=== PATIENT | female | born 1995 | race Caucasian/White ===

== ENCOUNTER 2016-10-22 07:04 | Inpatient (IN) ==
--- NOTE | 2016-10-22 07:46 | OB/GYN History & Physical ---
Date of Encounter: 10/22/16 Time of Encounter: 07:40 Assessment and Plan (1) 39 weeks gestation of Current visit: Yes Status: Acute (2) First in adolescent 16 years of age or older in third trimester Current visit: Yes Status: Acute (3) Labor abnormality, antepartum Current visit: Yes Status: Acute (4) Macrosomia affecting management of mother in third trimester Current visit: Yes Status: Acute (5) History of aortic valve insufficiency Current visit: Yes Status: Acute History of Present Illness HPI: Ms. Roca is a 21 year old female 1 para 0 at 39-0/7 weeks who presents to labor and delivery with complaint of contractions every 3-5 minutes starting early this morning. Patient is a scheduled section at [facility] Tomorrow due to history of aortic insufficiency. Patient states they told her if the contractions were so close to come to the closest hospital to be evaluated. Patient states at 37 weeks baby weighed almost 9 pounds reason for the scheduled section tomorrow. Patient states she has not been examined since 34 weeks not sure she has been making cervical change. Denies any leaking fluid vaginal bleeding or discharge. Patient states last time she ate anything was 10 PM last night did have some liquids at 3 AM. Past Med Surg Social Fam HX - Past Medical History Medical history: other (Aortic insufficiency) Psychiatric history: no psych history - Past Surgical History Surgical History: other (Open heart surgery in 1999) - Social History Smoking Status: Never smoker Smokeless Tobacco Status: No Alcohol use: none Drug use: none Current living situation: Home - Independent Activity Level: Independent ambulation Recent Out of Country Travel Within the Last 8 Weeks: No Exposure or Possible Exposure to Illness During Travel: No - Family History Father Hx Family Cardiac Disorders: Yes (HTN) Obstetrical History - Pregnancies : 1 Para: 0 Medications and Allergies Allergies Penicillins Allergy (Verified 10/22/16 07:25) other Pt states that her mom says she is allergic to it Review of System OB All systems PM: reviewed and no additional remarkable complaints except as stated - Menstruation Menstruation: other (Complaining of contractions every 4 minutes) Exam - Constitutional Constitutional: well developed, moderate distress, obese - HEENT HEENT: EOMI - Neck Neck exam: full ROM - Lungs Respiratory exam: CTAB - Cardiovascular Cardiovascular exam: +S1 - Breasts Breast: bilateral: normal - Abdomen Abdomen: Present: bowel sounds normal, gravid - Cervix Dilation: 3 Effacement: 90 Station: -4 (ball) Results All other labs normal.
--- NOTE | 2016-10-22 08:18 | Anesthesia Evaluation PreOp ---
Date of Encounter: 10/22/16 Time of Encounter: 08:07 - Past History Planned Operation: c-cestion d/t LGA, and Aortic Ins. Cardiac History: Cardiac Surgery (1999, patient unaware of what type of surgery it was and told it reoccured at age 14, she did METs >8 in highschool without any restrictions. She has not had any complications with excerise, denies any SOB, CP, dizzness, PND,), Other (attempting to obtain recent cardiac workup from [facility]) Pulmonary History: Denies Any Significant HX CHEMICAL DEPENDENCY NURSE History: Denies Any Significant HX Other Medical History: Denies Any Significant HX Anesthesia History: No Prior Anesthetic Complications, Past Anesthesia : Yes (39 wks 3/90 membranes Intact...then 4-5cm) Alcohol Use: none Drug use: none Medications and Allergies Allergies Penicillins Allergy (Verified 10/22/16 07:25) other Pt states that her mom says she is allergic to it Anesthesia Exam - HEENT Pupil (Motor): Pupils equal Mallampati: III Teeth: Normal Oral Opening: Greater than 3 - CHEMICAL DEPENDENCY NURSE LOC: Oriented CHEMICAL DEPENDENCY NURSE Motor: Normal RUE, Normal LUE, Normal RLE, Normal LLE, Normal Face CHEMICAL DEPENDENCY NURSE Sensory: Normal: RUE, LUE, RLE, LLE, Face - Cardiac Rhythm: Regular - Pulmonary Breath Sounds: bilateral Clear Respiratory Effort: Symmetrical Anesthesia Assess/Plan ASA Score: 2 Modified Maxwell Scale for Level of Consciousness: Cooperative, oriented, and tranquil Anesthetic Plan: General, Regional Monitoring Plan: Standard Monitors Recovery Plan: PACU
[2016-10-22] MEDS ORDERED: Metoclopramide 10 MG/2 ML VIAL IVP ONE (08:25)
[2016-10-22] MEDS ORDERED: Clindamycin 900 MG/50 ML 900 MG/50 ML IV.SOLN IVPB ONE (08:25)
[2016-10-22] MEDS ORDERED: Famotidine 20 MG/2 ML VIAL IVP ONE (08:25)
[2016-10-22] MEDS ORDERED: Ringers Solution, Lactated 1,000 ML IVC ONE (08:25)
[2016-10-22] MEDS ORDERED: *HR* Phenylephrine 10 MG/ML VIAL ONE (08:29)
[2016-10-22] MEDS ORDERED: Ringers Solution, Lactated 1,000 ML IVC SCH ×3 (08:30→22:34)
[2016-10-22] MEDS ORDERED: Oxytocin 20 units/ LR 1000 mL 20 UNIT/1,000 ML BAG IVC SCH (08:30)
--- NOTE | 2016-10-22 08:31 | OB Labor Progress Note ---
Date of Encounter: 10/22/16 Time of Encounter: 08:30 Labor Progress Note - Subjective Subjective: patient states contractions getting stronger and closer - Cervix Cervix: 5/100/ball with buldging membranes - Heart Tones Heart Tones: FHT's 140's reactive - [place]: contractions every 2 min - Plan Plan: will prep for primary LTCS
[2016-10-22] MEDS ORDERED: Lidocaine/EPI 1:200k 2% PF 10 ML VIAL ONE (08:34)
[2016-10-22 08:40] LABS: Basophils % 0.1 %; Eosinophils % 0.1 %; Hemoglobin 12.6 g/dL (11.5-15.4); Immature Granulocytes % 0.2 % (0-4); Lymphocytes # 1.1 K/mcL (0.6-4.6); Lymphocytes % 12.7 %; Mean Corpuscular HGB Conc 34.1 g/dL (31.6-35.5); Mean Corpuscular Hemoglobin 29.3 pg (28.0-33.3); Mean Platelet Volume 12.9 fL (9.4-12.4); Monocytes # 0.8 K/mcL (0.0-1.3); Monocytes % 9.6 %; Neutrophils # 6.4 K/mcL (1.6-8.9); Platelet Count 166 K/mcL (140-400); Red Cell Distribution Width 13.6 % (11.5-14.5); Segmented Neutrophils % 77.3 %
[2016-10-22] MEDS ORDERED: 0.9 % Sodium Chloride 500 ML ONE (08:44)
[2016-10-22] MEDS ORDERED: Ringers Solution, Lactated 1,000 ML ONE (08:51)
[2016-10-22] MEDS ORDERED: *HR* FentaNYL (PF) 100 MCG/2 ML VIAL ONE (08:53)
[2016-10-22] MEDS ORDERED: EPHEDrine 50 MG/ML VIAL ONE (08:54)
[2016-10-22] MEDS ORDERED: *HR* Oxytocin 10 UNIT/ML VIAL IM ONE (08:54)
[2016-10-22] MEDS ORDERED: *HR* Morphine Sulfate/PF 5 MG/10 ML AMPUL ONE ×2 (08:56→09:08)
[2016-10-22] MEDS ORDERED: Lidocaine -MPF 2% 5 ML VIAL INFILT ONE (08:56)
[2016-10-22] MEDS ORDERED: Bupivacaine-MPF 0.25% 10 ML VIAL ONE (08:56)
[2016-10-22] MEDS ORDERED: *HR* Promethazine 25 MG/ML VIAL IVP PRN (09:55)
--- NOTE | 2016-10-22 10:53 | OB/GYN Procedure Note ---
Section - Date of procedure: 10/22/16 Preop diagnosis: other ( at 39-0/7 weeks, history of macrosomia, active labor, history of aortic valve insufficiency) Post-op diagnosis: same Procedure: primary low transverse Surgeon: Yomi Davis Estimated blood loss (cc): 500 Final Tester: Lenny Aleman ([email or web address]) Data Services Developer: Lenny Ackerman Anesthesia Type: Spinal section complications: none Disposition: L&D Recovery Room Specimens: Cord blood - (s) Infant A Delivery Date: 10/22/16 Infant Delivery Time: 09:59 Presentation: vertex Position: GUILLERMO Route of delivery: other Gender: Male Viability: Viable Pounds: 9 Ounces: 9 Gram Weight: 4.335 kg at 1 minute: 9 at 5 minutes: 9 Shoulder Dystocia: not encountered Specimens collected: cord blood Placenta: complete extraction Cord: 3 umbilical vessels - Narrative Narrative: Patient is a 21-year-old 1 para 0 at 39 and 0 since weeks who presented to labor and delivery in active labor. Patient was supposed to deliver at [facility] tomorrow by section due to history of atrial insufficiency with a macrosomic . Patient's care was transferred to the facility because of cardiac history. Patient was told by them if she felt she could not make it to [place] to come to the local hospital which she did. She was 3 cm on admission within an hour she was 5. She was unstable to transfer section was called. Procedure: Patient was taken operating room where spinal anesthesia was found be adequate. She was placed in the dorsal supine position with tilt prepped and draped in usual fashion. Timeout was then obtained a Pfannenstiel incision was made with a scalpel and carried down through the underlying tissue to the fascia was identified. Fascia was nicked in midline extended laterally with Richards scissors. The superior and inferior edges of the fascia were grasped tented up and dissected off the rectus muscles. Rectus muscles were in midline parietal peritoneum was identified tented up and entered sharply. This was extended superiorly fairly Metzenbaum scissors. Bladder blade was inserted and vesicouterine peritoneum was identified tented up and entered sharply. This was extended laterally bladder flap was created digitally. The lower uterine segment was then incised with a scalpel extended laterally with digital manipulation. The membranes were still intact she was noted to have meconium they were then ruptured and 's head was brought up through the incision and bulb suction. The infant was then fully delivered cord was clamped and cut infant was handed off to waiting pediatric team. Cord blood was collected placenta was then manually removed uterus was exteriorized and cleaned of all clots and debris. The lower uterine segment was then closed using an 0 Vicryl in a running locking stitch by a 2 layer closure. Good hemostasis was noted. Uterus was returned to the abdomen gutters were cleansed of all clots and debris and copiously irrigated. The fascia was then closed using a #1 stratafix in a running stitch and the skin was closed using a 4 Vicryl in subcuticular manner. A OSMEL dressing was applied and patient was taken recovery room in stable condition. All needles lap sponge counts were correct 3 she did receive preoperative antibiotics. Patient will be observed 2 hours before being sent to a telemetry floor for 12 hours for cardiac monitoring is stable will be transferred back to floor.
[2016-10-22] MEDS: *HR* HYDROmorphone (PF) 1 MG/ML SYRINGE IVP PRN ×2 (11:55→12:56)
--- NOTE | 2016-10-22 12:18 | Anesthesia Evaluation Post Op ---
Date of Encounter: 10/22/16 Time of Encounter: 12:16 - Vital Signs Vital Signs: vss - Lungs Lungs: Clear Ascult./Percussion - Airway Airway: Non-obstructed - Cardiovascular Baseline Rhythm - Mental Status Mental Status: Alert & Oriented, Answers Appropriately - Pain Pain Scale used: Willi (Faces) - Nausea Vomiting Nausea Vomiting: Not Present - Discharge PostOp Status: Transfer Patient to floor
[2016-10-22] MEDS ORDERED: *HR* OxyCODONE/APAP 5/325 TABLET PO PRN (14:06)
[2016-10-22] MEDS ORDERED: Sennosides 8.6 MG TABLET PO PRN ×2 (14:06→22:34)
[2016-10-22] MEDS ORDERED: Ibuprofen 600 MG TABLET PO PRN (14:06)
[2016-10-22] MEDS ORDERED: Simethicone 80 MG TAB.CHEW PO PRN ×2 (14:06→22:34)
[2016-10-22] MEDS ORDERED: *HR* HYDROmorphone (PF) 1 MG/ML SYRINGE IVP PRN (14:06)
[2016-10-22] MEDS ORDERED: *HR* Morphine 2 MG/ML SYRINGE IVP PRN (14:06)
[2016-10-22] MEDS ORDERED: Metoclopramide 10 MG/2 ML VIAL IVP PRN (14:06)
[2016-10-22] MEDS ORDERED: *HR* OxyCODONE/APAP 10/325 TABLET PO PRN ×2 (14:06→22:34)
[2016-10-22] MEDS ORDERED: Ondansetron 4 MG/2 ML VIAL IVP PRN ×2 (14:06→22:34)
[2016-10-22] MEDS ORDERED: Lanolin 7 G OINT...G. TP PRN ×2 (16:49→22:34)
[2016-10-22] MEDS: Oxytocin 20 units/ LR 1000 mL 20 UNIT/1,000 ML BAG IV SCH ×2 (17:01→23:30)
[2016-10-22] MEDS ORDERED: Oxytocin 20 units/ LR 1000 mL 20 UNIT/1,000 ML BAG IV SCH (22:34)
[2016-10-23] MEDS: Ibuprofen 600 MG TABLET PO PRN ×3 (02:08→15:50)
[2016-10-23 03:22] LABS: Basophils % 0.1 %; Eosinophils % 0.1 %; Hematocrit 28.8 % (35.3-44.9); Hemoglobin 9.5 g/dL (11.5-15.4); Immature Granulocytes % 0.2 % (0-4); Lymphocytes % 11.8 %; Mean Corpuscular Hemoglobin 28.8 pg (28.0-33.3); Mean Corpuscular Volume 87.3 fL (83.0-100.0); Mean Platelet Volume 12.3 fL (9.4-12.4); Monocytes # 0.9 K/mcL (0.0-1.3); Monocytes % 10.8 %; Neutrophils # 6.4 K/mcL (1.6-8.9); Platelet Count 125 K/mcL (140-400); Red Cell Distribution Width 13.6 % (11.5-14.5)
--- NOTE | 2016-10-23 07:49 | OB/GYN Progress Note ---
Date of Encounter: 10/23/16 Time of Encounter: 07:46 - Assessment and Plan (1) Status post primary low transverse section Current Visit: Yes Status: Acute Continue routine care discharge home tomorrow (2) Anemia Current Visit: Yes Status: Acute Continue ferrous sulfate daily Qualifiers: Anemia type: unspecified type Qualified Code(s): D64.9 - Anemia, unspecified Subjective - Subjective Principal diagnosis: Postop/ day 1 Interval history: Patient is day 1. Patient had a primary c/s for macrosomia. Patient denies any pain at this time. Reports light lochia. Patient reports: appetite normal, voiding normally, pain well controlled, ambulating normally [place]: doing well, nursing well Objective - Vital Signs Latest vital signs: Vital Signs Temp Pulse Resp BP Pulse Ox 10/23/16 04:10 98.3 F 78 14 113/75 96 10/23/16 01:15 98.1 F 78 14 118/80 98 10/23/16 00:04 98.4 F 74 15 131/83 99 10/22/16 21:02 97.8 F 64 14 129/84 100 10/22/16 16:15 97.4 F L 73 12 118/76 97 10/22/16 16:00 97.4 F L 73 12 118/76 97 10/22/16 15:30 12 10/22/16 14:45 97.2 F L 66 12 108/69 98 10/22/16 13:00 97.9 F 72 12 122/65 97 Intake and Output 10/22/16 10/22/16 10/23/16 15:59 23:59 07:59 Intake Total 1000 / 1000 0 / 0 Output Total 500 / 500 0 / 0 1500 / 1500 Balance -500 / -500 1000 / 1000 -1500 / -1500 Intake: IV Fluids 1000 / 1000 Pitocin 20 unit In 1,000 1000 / 1000 ml @ 125 mls/hr IV .Q8H [facility] Rx#:[id number] Oral 0 / 0 0 / 0 Output: Urine 0 / 0 Estimated Blood Loss 500 / 500 Catheter 1500 / 1500 Other: Weight 94.376 kg Patient Weight 10/23/16 23:59 Weight 94.376 kg - Exam Lungs: bilateral: normal Chest: Normal S1, Normal S2 Extremities: Present: normal Abdomen: Present: normal appearance, soft Incision: Present: normal, dry, intact, dressed (Lynette dressing) Uterus: Present: normal, firm Fundal Height: 2 (U/2) - Labs Labs: Laboratory Results - last 24 hr 10/22/16 10/23/16 08:30 03:14 WBC 8.3 8.4 RBC 4.30 3.30 L Hgb 12.6 9.5 L D Hct 37.0 28.8 L MCV 86.0 87.3 MCH 29.3 28.8 MCHC 34.1 33.0 RDW 13.6 13.6 Plt Count 166 125 L MPV 12.9 H 12.3 Immature Gran % 0.2 0.2 Seg Neutrophils % 77.3 77.0 Lymphocytes % 12.7 11.8 Monocytes % 9.6 10.8 Eosinophils % 0.1 0.1 Basophils % 0.1 0.1 Neutrophils # 6.4 6.4 Lymphocytes # 1.1 1.0 Monocytes # 0.8 0.9 Eosinophils # 0.0 0.0 Basophils # 0.0 0.0
[2016-10-23] MEDS: Prenatal Vit/FA 1 EACH TABLET PO SCH (08:50)
[2016-10-23] MEDS ORDERED: Prenatal Vit/FA 1 EACH TABLET PO SCH (09:00)
[2016-10-23] MEDS: *HR* OxyCODONE/APAP 5/325 TABLET PO PRN ×2 (09:53→21:42)
[2016-10-24] MEDS: Ibuprofen 600 MG TABLET PO PRN ×2 (02:58→11:36)
--- NOTE | 2016-10-24 05:50 | Internal Medicine Consult Note ---
Date of Encounter: 10/22/16 Time of Encounter: 16:00 - Assessment and Plan (1) Heart murmur Current Visit: Yes Status: Acute Assessment and plan: Patient has both a systolic murmur of mitral and tricuspid insufficiency and a diastolic murmur of aortic insufficiency which she has been told she had in the past. She does not have symptoms of decompensated valvular disease. I have reviewed the results of an echocardiogram which shows moderately severe aortic insufficiency. The patient is asymptomatic we recommend that she follows up outpatient with her ramp jockey. We will monitor cardiovascular and respiratory status while in the hospital. (2) History of aortic valve insufficiency Current Visit: Yes Status: Acute Assessment and plan: I have personally reviewed the telemetry strip which reveals normal sinus rhythm and no ectopy. We will continue telemetry for 12 hours and then will return the patient to the OB gutierrez. Internal Medicine - CN: HPI - Data of Consult Patient: new to practice Consult date: 10/22/16 Requesting Physician: Roman Davis - Consult Narrative Reason for consult: Telemetry monitoring for valvular heart disease History of present illness: Ms. Roca is a 21 year old female who had a section earlier today on 10/22/2013. 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 She had a normal course and followed up with her ramp jockey recommended 12 hours of telemetry monitoring her post delivery or C -section. She had a uncomplicated done earlier this morning. Patient currently reports moderate to severe abdominal incisional pain worse with moving in bed, improved with rest. She denies chest pain palpitations and shortness of breath. A 10 point review of systems was negative Family history was reviewed and found to be noncontributory. Past Med Surg Social Fam HX - Past Medical History Medical history: other (Aortic insufficiency) Psychiatric history: no psych history - Past Surgical History Surgical History: other (Open heart surgery in 2000) - Social History Smoking Status: Never smoker Smokeless Tobacco Status: No Alcohol use: none Drug use: none - Family History Father Hx Family Cardiac Disorders: Yes (HTN) Internal Medicine - CN: Meds Allergies Penicillins Allergy (Verified 10/22/16 07:25) other Pt states that her mom says she is allergic to it Internal Medicine - CN: Exam - Constitutional Vitals: Temp Pulse Resp BP Pulse Ox 97.6 F 93 16 129/87 95 10/23/16 21:30 10/23/16 21:30 10/23/16 21:30 10/23/16 21:30 10/23/16 21:30 General appearance IM: Present: A&O X 3, no acute distress - Eye Eye exam: Present: PERRL, conjuntiva pink, sclera anicteric - Respiratory Respiratory exam: Present: CTAB. Absent: accessory muscle use, respiratory distress, wheezes - Cardiovascular Cardiovascular exam IM: Present: RRR, +S1, +S2, systolic murmur - Expanded Cardiovascular Exam Type of murmur: Present: diastolic, systolic - GI/Abdominal GI/Abdominal exam IM: Present: normal bowel sounds. Absent: mass Additional comments: Lower abdominal surgical incision covered with dressing Internal Medicine - CN: Reslt - Labs CBC & Chem 7: 10/23/16 03:14 Consult Discharge Plan - Plan Referrals: NO,PCP [Primary Care Provider] -
--- NOTE | 2016-10-24 06:06 | Internal Med Progress Note ---
Date of Encounter: 10/24/16 - Assessment and plan (1) Heart murmur Current Visit: Yes Status: Acute (2) History of aortic valve insufficiency Current Visit: Yes Status: Acute - Constitutional Vitals: Temp Pulse Resp BP Pulse Ox 97.6 F 93 16 129/87 95 10/23/16 21:30 10/23/16 21:30 10/23/16 21:30 10/23/16 21:30 10/23/16 21:30 General appearance: Present: A&O X 3, no acute distress Internal Medicine: Result - Labs CBC & Chem 7: 10/23/16 03:14 - VTE Documentation of Mechanical Device: Intermittent pneumatic compression device Consult Discharge Plan - Plan Referrals: NO,PCP [Primary Care Provider] -
[2016-10-24] MEDS: Prenatal Vit/FA 1 EACH TABLET PO SCH (07:51)
[2016-10-24 08:55] VITALS: BP 99/62
--- NOTE | 2016-10-24 09:40 | Discharge Summary ---
Date of Encounter: 10/24/16 Time of Encounter: 09:34 - Discharge Diagnosis (1) Status post primary low transverse section Priority: Primary Status: Acute Comments: Continue routine care discharge home today (2) Anemia Priority: Secondary Status: Acute Comments: Continue ferrous sulfate daily Qualifiers: Anemia type: unspecified type Qualified Code(s): D64.9 - Anemia, unspecified (3) Breast feeding status of mother Priority: Secondary Status: Acute Comments: support prn - Discharge Medications Prescriptions: OxyCODONE/APAP 5/325 [Percocet 5/325 MG] 1 each PO Q4HR PRN #30 tablet PRN Reason: Moderate pain 4-6 Ibuprofen [Motrin] 600 mg PO Q6HR PRN #60 tablet PRN Reason: Cramping Breast Pump [BREAST PUMP] 1 each .ROUTE AD #1 each Docusate [Colace] 100 mg PO BID #60 capsule Home Medications: Breast Pump [BREAST PUMP] 1 each .ROUTE AD #1 each 10/24/16 [Rx] Docusate [Colace] 100 mg PO BID #60 capsule 10/24/16 [Rx] Ferrous Sulfate 325 mg PO DAILY #0 tablet 10/24/16 [Rx] Ibuprofen [Motrin] 600 mg PO Q6HR PRN #60 tablet 10/24/16 [Rx] Lanolin [Lansinoh] 1 appl TP TID PRN #0 oint...g. 10/24/16 [Rx] OxyCODONE/APAP 5/325 [Percocet 5/325 MG] 1 each PO Q4HR PRN #30 tablet 10/24/16 [Rx] Vit/FA 1 each PO DAILY tablet 10/24/16 [Rx] Allergies/Adverse Reactions: Allergies Penicillins Allergy (Verified 10/22/16 07:25) other Pt states that her mom says she is allergic to it Data Procedures and tests throughout hospitalization: Laboratory Tests 10/22/16 10/23/16 08:30 03:14 WBC 8.3 8.4 RBC 4.30 3.30 L Hgb 12.6 9.5 L D Hct 37.0 28.8 L MCV 86.0 87.3 MCH 29.3 28.8 MCHC 34.1 33.0 RDW 13.6 13.6 Plt Count 166 125 L MPV 12.9 H 12.3 Immature Gran % 0.2 0.2 Seg Neutrophils % 77.3 77.0 Lymphocytes % 12.7 11.8 Monocytes % 9.6 10.8 Eosinophils % 0.1 0.1 Basophils % 0.1 0.1 Neutrophils # 6.4 6.4 Lymphocytes # 1.1 1.0 Monocytes # 0.8 0.9 Eosinophils # 0.0 0.0 Basophils # 0.0 0.0 Date of admission: 10/22/16 07:04 Primary care physician: PCP MAURICIO Discharging clinician: Sary Ramirez Anticipated date of discharge: 10/24/16 - Patient Status Disposition: Home, Self-Care Condition: Good Functional capacity at discharge: independent ambulation - Discharge Instructions Follow Up With: MAURICIO,PCP [Primary Care Provider] - Sary Ramirez CNM [Advanced Practice Nurse] - - Diet and Activity Activity: increase activity as tolerated Diet: regular diet Hospital Course Procedures: [facility] report Reason for admission: active labor Delivery: section (Primary for macrosomia) Episiotomy: none Laceration: none Other procedures: none complications: none Discharge diagnosis: IUP at term delivered [place] baby: male (breast feeding) Time Attestation: Total time spent providing and/or coordinating discharge services: Time Spent: Less than 30 minutes - VTE Documentation of Mechanical Device: Intermittent pneumatic compression device Exam - Constitutional Vitals: Temp Pulse Resp BP Pulse Ox 98.0 F 82 16 99/62 97 10/24/16 08:15 10/24/16 08:15 10/24/16 08:15 10/24/16 08:15 10/24/16 08:15 General appearance IM: A&O X 3, pleasant, answers questions appropriately - Respiratory Respiratory exam: Present: CTAB - Cardiovascular Cardiovascular exam IM: Present: RRR, +S1, +S2 - GI/Abdominal GI/Abdominal exam IM: normal bowel sounds Incision: normal, dry, intact, other (Lynette dressing) - Uterine Tone: Firm Uterus Position: 3 Fingers Below Umbilicus, Midline - Extremities Exam Extremities exam IM: Present: full ROM, normal capillary refill, normal inspection - Neurological Exam Neurological exam: alert, oriented X3, reflexes normal
[2016-10-24] MEDS ORDERED: MOM Conc 10 ML UD.LIQ PO SCH (10:00)
[2016-10-24] MEDS: *HR* OxyCODONE/APAP 5/325 TABLET PO PRN (14:04)
== END 2016-10-24 16:32 | disposition home or self-care (01) | DRG 766 ==
LOC: 1NENULAB → OBSVTOIN 07:04 → 3ANU 13:26 → 1NENUOBS 10-23 01:39
PROVIDERS: ADMIT Obstetrics & Gynecology; ATTEND Obstetrics & Gynecology